=== PATIENT | female | born 1955 | race Caucasian/White ===

== ENCOUNTER 2022-07-30 12:38 | Inpatient (IN) | payer MEDICARE ==
[2022-07-30 15:18] VITALS: BMI 16.6
[2022-07-30] MEDS ORDERED: HYDROcodone/Acetaminophen 5/325 mg Tablet PO PRN (15:31)
[2022-07-30] MEDS ORDERED: Ipratropium/Albuterol 3 ML NEB NEB PRN (15:33)
[2022-07-30] MEDS ORDERED: Azithromycin 500 MG in Sodium Chloride 0.9% 250 ML 250 ML IVPB SCH ×2 (16:00→17:00)
[2022-07-30] MEDS: Acetaminophen 325 MG TAB PO PRN (16:14)
[2022-07-30] MEDS: cefTRIAXone\\ROCEPHIN 2 GM in Sodium Chloride 0.9% 100 ML IVPB SCH (16:15)
[2022-07-30] MEDS: guaiFENesin ER 600 MG TAB PO SCH (20:55)
[2022-07-30] MEDS: Gabapentin 300 MG CAP PO SCH (20:55)
[2022-07-30] MEDS: Heparin 5,000 UNITS/ML VIAL SC SCH (20:56)
[2022-07-31] MEDS: Acetaminophen 325 MG TAB PO PRN (02:37)
[2022-07-31 04:50] LABS: #Monocytes 0.6 thou/uL (0.11-0.59); #Neutrophils 10.4 thou/uL (1.40-6.50); %Basophils 0.2 % (0.0-1.0); %Eosinophils 0.2 % (0.0-10.0); %Neutrophils 84.1 % (42.0-75.0); Hemoglobin 11.9 g/dL (12.0-16.0); Mean Corpuscular HGB CONC 34.4 g/dL (32.0-36.0); Mean Corpuscular Hemoglobin 34.2 pg (27.0-31.0); Mean Corpuscular Volume 99.4 fl (78.0-98.0); Mean Platelet Volume 10.5 fL (7.4-10.4); Platelet Count 193 10x3/uL (130-400); RBC Distribution Width 13.1 % (11.5-14.5); Red Blood Cell (RBC) Count 3.48 mill/uL (4.20-5.40); White Blood Cell (WBC) Count 12.3 10x3/uL (4.8-10.8)
[2022-07-31 05:18] LABS: Anion Gap 14 mmol/L (10-20); BUN (Urea Nitrogen) 13 mg/dL (9.8-20.1); Calc. Creatinine Clearance 61 mL/min (70-130); Calcium 8.9 mg/dL (7.8-10.44); Carbon Dioxide 21 mmol/L (23-31); Chloride 105 mmol/L (98-107); Estimated GFR 100; Glucose 99 mg/dL (80-115); Potassium 3.2 mmol/L (3.5-5.1); Sodium 137 mmol/L (136-145)
[2022-07-31] MEDS: Gabapentin 300 MG CAP PO SCH ×3 (09:41→19:55)
[2022-07-31] MEDS: Citalopram 20 MG TAB PO SCH (09:41)
[2022-07-31] MEDS: guaiFENesin ER 600 MG TAB PO SCH ×2 (09:41→19:55)
[2022-07-31] MEDS: Heparin 5,000 UNITS/ML VIAL SC SCH (09:43)
[2022-07-31] MEDS: Azithromycin 500 MG in Sodium Chloride 0.9% 250 ML 250 ML IVPB SCH (11:53)
[2022-07-31] MEDS ORDERED: Potassium Chloride 20 MEQ TAB PO SCH (12:30)
[2022-07-31] MEDS: cefTRIAXone\\ROCEPHIN 2 GM in Sodium Chloride 0.9% 100 ML IVPB SCH (16:04)
[2022-08-01] MEDS: Gabapentin 300 MG CAP PO SCH ×2 (10:02→15:06)
[2022-08-01] MEDS: Citalopram 20 MG TAB PO SCH (10:03)
[2022-08-01] MEDS: guaiFENesin ER 600 MG TAB PO SCH (10:03)
[2022-08-01] MEDS: Azithromycin 500 MG in Sodium Chloride 0.9% 250 ML 250 ML IVPB SCH (11:03)
[2022-08-01] MEDS: cefTRIAXone\\ROCEPHIN 2 GM in Sodium Chloride 0.9% 100 ML IVPB SCH (15:06)
[2022-08-01 17:26] VITALS: BP 162/78; TEMP 97.8
== END 2022-08-01 17:15 | disposition home or self-care (01) | DRG 191 ==
LOC: MSONC 14:54 → OBSVTOIN 15:31
PROVIDERS: ADMIT Internal Medicine; ATTEND Internal Medicine
DX: J47.9 Bronchiectasis, uncomplicated (principal); Z68.1 Body mass index [BMI] 19.9 or less, adult; J13 Pneumonia due to Streptococcus pneumoniae; F17.210 Nicotine dependence, cigarettes, uncomplicated; E87.6 Hypokalemia; F32.A Depression, unspecified; G62.9 Polyneuropathy, unspecified; R63.6 Underweight; Z79.899 Other long term (current) drug therapy
CPT/HCPCS: 36415; 71046; 71275; 80048; 85025; 85379; J0456; J0696; J1644; J1650; J3490; J7050